=== PATIENT | female | born 1960 | race Caucasian/White ===

== ENCOUNTER 2020-11-06 08:22 | Emergency (ER) | payer SELFPAY ==
[2020-11-06 08:27] VITALS: BP 176/71; PULSE 88; RESP 16; TEMP 36.6; O2SAT 96; BMI 47.3
--- NOTE | 2020-11-06 08:31 | XR_ITS ---
WS: [id number] Portable AP upright chest, 11/06/2020 Clinical Data: chest pain Comparison: Portable chest, 11/12/2017. Findings: No nodules, masses or effusions are seen. The heart is normal. The pulmonary vascularity is not increased. No pneumothorax is seen. There is minimal opacity at the left costophrenic angle with minimal atelectasis and/or pneumonia. There are monitor leads on the chest wall. XR/XR chest 1V portable [id number] Impression: Patchy opacity at left costophrenic angle which could represent atelectasis or minimal pneumonia.
--- NOTE | 2020-11-06 08:31 | ECG_ITS ---
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1960 Requested By: Jyoti Salomon Order Number: [id number] Reading MD: CANDE SIMONS Measurements Intervals [place] Rate: 78 P: 52 MA: 157 QRS: -33 QRSD: 142 T: 113 QT: 418 QTc: 477 Interpretive Statements SINUS RHYTHM MARKED LEFT AXIS DEVIATION [QRS AXIS < -30] LEFT BUNDLE BRANCH BLOCK [120+ ms QRS DURATION, 80+ ms Q/S IN V1/V2, 85+ ms R IN I/aVL/V5/V6] Compared to ECG 11/12/2017 12:12:03 Left-axis deviation now present Left bundle-branch block now present Myocardial infarct finding no longer present Electronically Signed On 11-06-2020 14:27:08 CDT by CANDE SIMONS [id number]
[2020-11-06 09:24] LABS: Basophils % 0.5 %; Eosinophils % 0.1 %; Hematocrit 44.6 % (37.0-47.0); Hemoglobin 13.5 g/dL (11.5-15.3); Lymphocytes # 1.8 10^3/uL (0.8-4.8); Lymphocytes % 24.3 %; Mean Corpuscular HGB Conc 30.3 g/dL (30.0-36.0); Mean Corpuscular Hemoglobin 26.6 pg (28.0-34.0); Mean Corpuscular Volume 87.8 fL (81-99); Mean Platelet Volume 10.2 fL (7.4-10.4); Monocytes # 0.7 10^3/uL (0.2-0.9); Neutrophils # 4.72 10^3/uL (1.8-7.7); Neutrophils % 64.4 %; Nucleated Red Blood Cells % 0 %; Platelet Count 201 10^3/cmm (130-400); Red Blood Count 5.08 10^6/uL (4.1-5.3); Red Cell Distribution Width 14.7 % (12.1-15.1); White Blood Count 7.3 10^3/uL (4.0-10.0)
--- NOTE | 2020-11-06 09:24 | W.ED.CHESTPA ---
HPI - Chest Pain General: Chief Complaint: Chest Pain Stated Complaint: CP/SENT BY [facility] Time Seen by Provider: 11/06/20 08:38 History of Present Illness: HPI narrative: 60-year-old female presents to the emergency room with complaints of intermittent chest pain. She has had over a dozen episodes since yesterday she will get short brief spasm-like chest pain that lasts anywhere from a few seconds to never more than a minute. Feels like she has a hard time taking a deep breath when she gets these. They are not associated with any significant dyspnea diaphoresis or nausea. She has no known history of coronary disease no swelling in the legs. In between these episodes she is essentially asymptomatic. She is not previously had any kind of stress testing or angiograms in the past. She is not diabetic is a former smoker but quit many years ago. Is not previously had events like this in the past. MD complaint: chest pain Onset (ago): day(s) Timing of current episode: episodic and now resolved Prior episodes: No Onset: during rest Pain location: substernal and left chest Pain radiation: none Severity: moderate Quality: sharp Relieving factors: nothing Exacerbating factors: nothing Associated symptoms: Deny abdominal pain, diaphoresis, dyspnea, fever(s), leg edema, nausea, palpitations, sense of impending doom, syncope or vomiting Treatment prior to arrival: none Review of Systems Const: Denies: fever(s) or diaphoresis ENMT: Denies: throat pain, ear or mastoid pain, nasal discharge or nasal congestion Card: Denies: palpitations or syncope Resp: Denies: dyspnea GI: Denies: abdominal pain, nausea or vomiting : Denies: flank pain, difficulty voiding, dysuria, urinary frequency or urinary urgency Skin/Breast: Denies: rash or pruritus Physical Exam Const: COMMON NORMALS: no acute distress GENERAL APPEARANCE: cooperative and comfortable ORIENTATION/CONSCIOUSNESS: Yes awake, Yes oriented to person, Yes oriented to place and Yes oriented to time HENMT: COMMON NORMALS: normocephalic, atraumatic and hearing grossly normal bilaterally HEAD & SCALP: normocephalic and atraumatic Neck/C-Spine: COMMON NORMALS: no JVD Resp: COMMON NORMALS: normal respiratory effort, No retractions, No use of accessory muscles and clear to auscultation bilaterally AUSCULTATION: clear to auscultation bilaterally Cardio: COMMON NORMALS: no JVD, regular rate, regular rhythm and No murmurs present (Cardio) RATE: regular rate RHYTHM: regular rhythm GI: COMMON NORMALS: Soft to palpation and No hepatosplenomegaly present AUSCULTATION: Yes normoactive bowel sounds PALPATION: Yes Soft to palpation, No Tenderness to palpation present (GI), No Guarding due to palpation present (GI) and Yes No hepatosplenomegaly present Extremity: COMMON NORMALS: normal to inspection, capillary refill normal, no clubbing, cyanosis or edema, no calf tenderness and no pedal edema Neuro: SENSORIUM/ORIENTATION: Yes oriented to person, Yes oriented to place and Yes oriented to time Skin: COMMON NORMALS: no rashes or lesions noted GENERAL SKIN EXAM: no rashes or lesions noted Course Vital Signs: Vital signs: Vital Signs Temperature 97.9 F 11/06/20 08:27 Pulse Rate 73 11/06/20 13:58 Respiratory Rate 18 11/06/20 13:58 Blood Pressure 171/69 11/06/20 13:58 Pulse Oximetry 98 11/06/20 13:58 MDM - Chest Pain MDM Narrative: Medical decision making narrative: EKG unremarkable troponin negative. Patient is asymptomatic at this time she has had this for several days blood pressure is significantly elevated and first came in her heart rate was little bit high as well will get ago and started on low-dose Toprol-XL 12 nephrograms daily as well as aspirin daily set her up for a Lexiscan sestamibi stress test return if has further problems. Lab Data: Labs: Lab Results 11/06/20 11/06/20 11/06/20 Range/Units 09:15 09:15 09:15 WBC 7.3 (4.0-10.0) 10^3/ uL RBC 5.08 (4.1-5.3) 10^6/u L Hgb 13.5 (11.5-15.3) g/dL Hct 44.6 (37.0-47.0) % MCV 87.8 (81-99) fL MCH 26.6 L (28.0-34.0) pg MCHC 30.3 (30.0-36.0) g/dL RDW 14.7 (12.1-15.1) % Plt Count 201 (130-400) 10^3/c mm MPV 10.2 (7.4-10.4) fL Neut % (Auto) 64.4 % Lymph % (Auto) 24.3 % [place] % (Auto) 10.0 % Eos % (Auto) 0.1 % Baso % (Auto) 0.5 % Neut # (Auto) 4.72 (1.8-7.7) 10^3/u L Lymph # (Auto) 1.8 (0.8-4.8) 10^3/u L [place] # (Auto) 0.7 (0.2-0.9) 10^3/u L Eos # (Auto) 0.0 (0.0-0.8) 10^3/u L Baso # (Auto) 0.0 (0.0-0.1) 10^3/u L Nucleated RBC % (a uto) 0 % Nucleated RBCs # 0.0 /100WBC Sodium 141 (136-145) mmol/L Potassium 4.1 (3.5-5.1) mmol/L Chloride 103 (98-107) mmol/L Carbon Dioxide 28 (22-29) mmol/L Anion Gap 14.1 (5-19) BUN 9 (8-23) mg/dL Creatinine 0.7 (0.5-0.9) mg/dL GFR Calculation 85.1 L (90-130) mL/min Glucose 115 (65-115) mg/dL Calculated Osmolal ity 292 (285-295) mOsm/k g Calcium 9.3 (8.5-10.5) mg/dL Total Bilirubin 0.5 (0.15-1.2) mg/dL AST 19 (0-32) U/L ALT 17 (0-33) U/L Alkaline Phosphata se 93 (35-105) IU/L Troponin T Baselin e 6 (0-10) ng/L Troponin T 120 Min [place] Troponin T Total Protein 7.5 (6.6-8.7) g/dL Albumin 4.1 (3.5-5.2) g/dL Globulin 3.4 (1.3-4.6) g/dL 11/06/20 11/06/20 Range/Units 11:36 12:28 WBC (4.0-10.0) 10^3/ uL RBC (4.1-5.3) 10^6/u L Hgb (11.5-15.3) g/dL Hct (37.0-47.0) % MCV (81-99) fL MCH (28.0-34.0) pg MCHC (30.0-36.0) g/dL RDW (12.1-15.1) % Plt Count (130-400) 10^3/c mm MPV (7.4-10.4) fL Neut % (Auto) % Lymph % (Auto) % [place] % (Auto) % Eos % (Auto) % Baso % (Auto) % Neut # (Auto) (1.8-7.7) 10^3/u L Lymph # (Auto) (0.8-4.8) 10^3/u L [place] # (Auto) (0.2-0.9) 10^3/u L Eos # (Auto) (0.0-0.8) 10^3/u L Baso # (Auto) (0.0-0.1) 10^3/u L Nucleated RBC % (a uto) % Nucleated RBCs # /100WBC Sodium (136-145) mmol/L Potassium (3.5-5.1) mmol/L Chloride (98-107) mmol/L Carbon Dioxide (22-29) mmol/L Anion Gap (5-19) BUN (8-23) mg/dL Creatinine (0.5-0.9) mg/dL GFR Calculation (90-130) mL/min Glucose (65-115) mg/dL Calculated Osmolal ity (285-295) mOsm/k g Calcium (8.5-10.5) mg/dL Total Bilirubin (0.15-1.2) mg/dL AST (0-32) U/L ALT (0-33) U/L Alkaline Phosphata se (35-105) IU/L Troponin T Baselin e (0-10) ng/L Troponin T 120 Min [place] Cancelled 6.19 Delta Troponin T Cancelled 0.19 Total Protein (6.6-8.7) g/dL Albumin (3.5-5.2) g/dL Globulin (1.3-4.6) g/dL Discharge Plan Discharge Patient Disposition: Home Clinical Impression: Atypical chest pain, HTN (hypertension) Condition: Stable Prescriptions: New aspirin 81 mg tablet,delayed release (DR/EC) 81 mg PO DAILY Qty: 30 RF: 0 Toprol XL 25 mg tablet extended release 24 hr 12.5 mg PO DAILY Qty: 15 RF: 0 Discharge Orders: Discharge ED (Routine); Ordered 11/06/20 Ordered By: Anastacio Taylor Referrals: Ghanshyam Ziegler NP [Primary Care Provider] - Discharge Diet: Usual diet Discharge Activity: Increase activity as tolerated Patient Instructions: Opioid Safety Activity Restrictions/Additional Instructions: Case management will call to set up a Lexiscan sestamibi stress test for you. In the meantime start aspirin and metoprolol. Coding Level of Care Code ED Fuel Cell Assembler for Gunnar Fwbarbra Exam Comprehensive
[2020-11-06 09:47] LABS: Alanine Aminotransferase 17 U/L (0-33); Albumin Level 4.1 g/dL (3.5-5.2); Alkaline Phosphatase 93 IU/L (35-105); Anion Gap 14.1 (5-19); Aspartate Amino Transferase 19 U/L (0-32); Blood Urea Nitrogen 9 mg/dL (8-23); Calcium 9.3 mg/dL (8.5-10.5); Carbon Dioxide 28 mmol/L (22-29); Chloride 103 mmol/L (98-107); Globulin 3.4 g/dL (1.3-4.6); Glomerular Filtration Rate 85.1 mL/min (90-130); Glucose 115 mg/dL (65-115); Osmolality Calculated 292 mOsm/kg (285-295); Potassium 4.1 mmol/L (3.5-5.1); Sodium 141 mmol/L (136-145); Total Bilirubin 0.5 mg/dL (0.15-1.2); Total Protein 7.5 g/dL (6.6-8.7); Troponin(5th) Baseline 6 ng/L (0-10)
--- NOTE | 2020-11-06 10:31 | ECG_ITS ---
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
[2020-11-06 13:04] LABS: Troponin 5 2HR 6.19 ng/L (0-10); Troponin 5 2HR Delta 0.19 ABS# (0-10)
[2020-11-06 13:58] VITALS: BP 171/69; PULSE 73; RESP 18; O2SAT 98
--- NOTE | 2020-11-09 12:27 | DCPLANNER ---
body care manager had message to schedule an outpatient stress test for patient. body care manager faxed signed order to centralized scheduling. body care manager will call for appointment information.
--- NOTE | 2020-11-10 13:32 | DCPLANNER ---
Patient has an outpatient stress test scheduled for Wednesday, December 02, 2020 at 11:30. Centralized scheduling will call patient with appointment information.
--- NOTE | 2020-12-17 12:11 | DCPLANNER ---
Patient had a outpatient stress test scheduled for 12.02.20 - appointment was cancelled.
== END 2020-11-06 14:00 | disposition home or self-care (01) ==
PROVIDERS: Physician Assistant; Emergency Provider Family Medicine; PCP Nurse Practitioner Family
DX: R07.89 Other chest pain (principal); I10 Essential (primary) hypertension
CPT/HCPCS: 36415; 71045; 80053; 84484; 85025; 93005; 99283

== ENCOUNTER 2022-05-11 10:04 | Outpatient (CLI) | payer MEDICAID, SELFPAY ==
--- NOTE | 2022-05-11 10:19 | MM_ITS ---
WS: [id number] BILATERAL SCREENING DIGITAL TOMOSYNTHESIS MAMMOGRAM WITH CAD HISTORY: SCREENING COMPARISON: 01/10/2018 Bilateral CC and MLO views with tomosynthesis and synthetic mammography submitted. Computer aided det ection analyzed. Breast composition: There are scattered areas of fibroglandular density. No suspicious masses, microc alcifications or architectural distortion. MM/[place] [id number] IMPRESSION: BI-RADS: 1-Negative FOLLOW UP: 1 Year Follow-up
== END 2022-05-11 10:05 | disposition home or self-care (01) ==
LOC: RAD 10:10
PROVIDERS: PCP Nurse Practitioner Family; Visit Provider Nurse Practitioner Family
DX: Z12.31 Encounter for screening mammogram for malignant neoplasm of breast (principal)
CPT/HCPCS: 77063; 77067

== ENCOUNTER 2023-06-27 10:15 | Outpatient (CLI) | payer MEDICAID, SELFPAY ==
--- NOTE | 2023-06-27 10:20 | MM_ITS ---
WS: [id number] BILATERAL 3D TOMOSYNTHESIS DIGITAL SCREENING MAMMOGRAPHY WITH CAD CLINICAL INFORMATION: SCREENING HISTORY: Screening mammogram. No current complaints. COMPARISON: 2022 TECHNIQUE: Bilateral CC and MLO views. FINDINGS: Scattered fibroglandular densities bilaterally. No suspicious focal mass, asymmetry, calcifications, or architectural distortion. No evidence of malignancy. A few incidental punctate calcifications. IMPRESSION: MM/[place] [id number] BI-RADS: 2-Benign FOLLOW UP: 1 Year Follow-up Recommend return to annual screening mammography.
== END 2023-06-27 10:16 | disposition home or self-care (01) ==
LOC: RAD 10:16
PROVIDERS: PCP Nurse Practitioner Family; Visit Provider Family Medicine
DX: Z12.31 Encounter for screening mammogram for malignant neoplasm of breast (principal); R92.323 Mammographic fibroglandular density, bilateral breasts
CPT/HCPCS: 77063; 77067

== ENCOUNTER 2024-04-06 13:56 | Emergency (ER) | payer MEDICARE, SELFPAY ==
[2024-04-06 14:34] VITALS: BP 167/104; PULSE 88; RESP 18; TEMP 36.5; O2SAT 95
[2024-04-06 14:44] LABS: Basophils % 0.3 %; Eosinophils % 0.2 %; Hematocrit 49.6 % (36-47); Lymphocytes # 1.8 10^3/uL (0.8-4.8); Lymphocytes % 20.3 %; Mean Corpuscular HGB Conc 29.6 g/dL (30-55); Mean Corpuscular Hemoglobin 26.1 pg (27-33); Mean Corpuscular Volume 87.9 fl (85-98); Mean Platelet Volume 10.5 fL (7.4-10.4); Monocytes % 11.1 %; Neutrophils # 5.82 10^3/uL (1.8-7.7); Neutrophils % 67.8 %; Nucleated Red Blood Cells % 0 %; Platelet Count 194 10^3/cmm (157-399); Red Blood Count 5.64 10^6/uL (3.85-5.65); Red Cell Distribution Width 14.9 % (12.1-15.1); White Blood Count 8.61 10^3/uL (3.29-11.43)
[2024-04-06 15:06] LABS: Alanine Aminotransferase 29 U/L (0-33); Alkaline Phosphatase 77 U/L (35-105); Anion Gap 14.1 (5-19); Aspartate Amino Transferase 32 U/L (0-32); Blood Urea Nitrogen 15 mg/dL (8-23); Calcium 9.5 mg/dL (8.5-10.5); Carbon Dioxide 22 mmol/L (22-29); Chloride 102 mmol/L (98-107); Creatinine Clr Calc Pharmacy 84.4758; Globulin 4.2 g/dL (1.3-4.6); Glucose 108 mg/dL (65-115); Lipase 54 U/L (13-60); Osmolality Calculated 279 mOsm/kg (285-295); Potassium 4.1 mmol/L (3.5-5.1); Sodium 134 mmol/L (136-145); Total Bilirubin 0.4 mg/dL (0.15-1.2); Total Protein 8.2 g/dL (6.6-8.7)
[2024-04-06 16:16] LABS: Bilirubin Urine Negative (Negative); Blood Urine 1+ (Negative); Glucose Urine UA Negative (Normal); Ketones Urine Negative (Negative); Leukocyte Esterase Urine Negative (Negative); Nitrate Urine Negative (Negative); Protein Urine Trace (Negative); Specific Gravity, Urine 1.028 (1.005-1.030); Urine Appearance Cloudy (CLEAR); Urine Color Yellow (Yellow)
[2024-04-06 16:27] LABS: Add Urine Microscopic? YES; Amorphous Sediment Urine TRACE /hpf; Bacteria Urine 2+ /hpf; Coarse Granular Casts Urine 0-4 /lpf; Mucus Urine 1+ /hpf; RBC Urine 0-4 /hpf (0-2); UA Manual Slide Review YES
--- NOTE | 2024-04-06 17:42 | ED_ITS ---
HPI - Nausea/Vomiting/Diarrhea 2 General: Chief complaint: Nausea/Vomiting/Diarrhea Stated complaint: n/v/d Time Seen by Provider: 04/06/24 15:43 Source: patient Mode of arrival: ambulatory Limitations: no limitations History of Present Illness: 64-year-old female states she believes s he has food poisoning states she had eaten dinner 2 nights ago and since then she been having vomiting along with diarrhea. States she has had multiple episodes denies any worsening proving factors states she has had some upper abdominal cramping pain as well. Associated nausea: Yes Associated symtoms: Reports nausea; Denies chest pain, dysuria or headache(s) Related Data Previous Rx's Medication Instructions Recorded aspirin 81 mg tablet,delayed 81 mg PO DAILY #30 tabs 11/06/20 release metoprolol succinate 25 mg 12.5 mg (1/2 x 25 mg) PO DAILY #15 11/06/20 tablet,extended release 24 hr tabs (Toprol XL) ondansetron 4 mg disintegrating 4 mg PO Q6H PRN nausea and 04/06/24 tablet vomiting #14 tabs Allergies Allergy/AdvReac Type Severity Reaction Status Date / Time amoxicillin [From Augmentin] Allergy Unknown Unknown Verified 11/06/20 09:19 clavulanic acid Allergy Unknown Unknown Verified 11/06/20 09:19 [From Augmentin] Iodine and Iodide Containing Allergy Unknown Unknown Verified 11/06/20 09:20 Produc Review of Systems 2 Const: Denies: fever(s), chills, body aches or change in appetite ENMT: Denies: throat pain or dental pain Card: Denies: chest pain Resp: Denies: dyspnea GI: Reports: abdominal pain, nausea, vomiting and diarrhea : Denies: dysuria Musc: Denies: neck pain or back pain Skin/Breast: Denies: rash Neuro: Denies: headache(s) Physical Exam 2 Const: COMMON NORMALS: no acute distress, patient oriented x3 and healthy appearing HENMT: COMMON NORMALS: normocephalic and atraumatic HEAD & SCALP: n ormocephalic and atraumatic Eye: COMMON NORMALS: conjunctivae normal CONJUNCTIVA: Yes conjunctivae normal Neck/C-Spine: COMMON NORMALS: full ROM and supple Chest: COMMONS NORMALS: normal inspection of the chest Resp: COMMON NORMALS: normal respiratory effort Cardio: COMMON NORMALS: regular rate RATE: regular rate GI: COMMON NORMALS: Normal to inspection, nondistended, normoactive bowel sounds present, Soft to palpation, non-tender and no masses PALPATION: Yes Soft to palpation Extremity: COMMON NORMALS: normal to inspection and full ROM Neuro: COMMON NORMALS: patient oriented x3, moves all extremities and no focal motor deficits Psych: COMMON NORMALS: mental status grossly normal, Normal thought process present and cooperative THOUGHT PROCESS: Normal thought process present Skin: COMMON NORMALS: no rashes or lesions noted and no wounds GENERAL SKIN EXAM: no rashes or lesions noted Course 2 Vital Signs: Vital signs: Vital Signs Temperature 97.7 F 04/06/24 14:34 Pulse Rate 88 04/06/24 14:34 Respiratory Rate 18 04/06/24 14:34 Blood Pressure 167/104 04/06/24 14:34 Pulse Oximetry 95 04/06/24 14:34 Oxygen Delivery Me thod Room Air 04/06/24 14:34 MDM - Nausea/Vomiting/Diarrhea Medical Decision Making Patient presents with vomiting diarrhea likely gastroenteritis. Exam here is benign blood work is normal I recommended a CT as she is having pain she now feels improved she is refusing CTs she states she just wants to go home we will prescribe her Zofran at this time she is return if worsening she understands agrees to plan. Medical Records I reviewed the patient's medical records. Lab Data I reviewed the patient's lab results. 04/06/24 14:36 04/06/24 14:36 Laboratory Results WBC 8.61 10^3/uL (3.29-11.43) 04/06/24 14:36 RBC 5.64 10^6/uL (3.85-5.65) 04/06/24 14:36 Hgb 14.70 g/dL (11.27-16.99) 04/06/24 14:36 Hct 49.6 % (36-47) H 04/06/24 14:36 MCV 87.9 fl (85-98) 04/06/24 14:36 MCH 26.1 pg (27-33) L 04/06/24 14:36 MCHC 29.6 g/dL (30-55) L 04/06/24 14:36 RDW 14.9 % (12.1-15.1) 04/06/24 14:36 Plt Count 194 10^3/cmm (157-399) 04/06/24 14:36 MPV 10.5 fL (7.4-10.4) H 04/06/24 14:36 Neut % (Auto) 67.8 % 04/06/24 14:36 Lymph % (Auto) 20.3 % 04/06/24 14:36 [place] % (Auto) 11.1 % 04/06/24 14:36 Eos % (Auto) 0.2 % 04/06/24 14:36 Baso % (Auto) 0.3 % 04/06/24 14:36 Neut # (Auto) 5.82 10^3/uL (1.8-7.7) 04/06/24 14:36 Lymph # (Auto) 1.8 10^3/uL (0.8-4.8) 04/06/24 14:36 [place] # (Auto) 1.0 10^3/uL (0.2-0.9) H 04/06/24 14:36 Eos # (Auto) 0.0 10^3/uL (0.0-0.8) 04/06/24 14:36 Baso # (Auto) 0.0 10^3/uL (0.0-0.1) 04/06/24 14:36 Nucleated RBC % (auto) 0 % 04/06/24 14:36 Nucleated RBCs # 0.0 /100WBC 04/06/24 14:36 Sodium 134 mmol/L (136-145) L 04/06/24 14:36 Potassium 4.1 mmol/L (3.5-5.1) 04/06/24 14:36 Chloride 102 mmol/L (98-107) 04/06/24 14:36 Carbon Dioxide 22 mmol/L (22-29) 04/06/24 14:36 Anion Gap 14.1 (5-19) 04/06/24 14:36 BUN 15 mg/dL (8-23) 04/06/24 14:36 Creatinine 0.7 mg/dL (0.5-0.9) 04/06/24 14:36 GFR Calculation 84.0 mL/min (90-130) L 04/06/24 14:36 Glucose 108 mg/dL (65-115) 04/06/24 14:36 Calculated Osmolality 279 mOsm/kg (285-295) L 04/06/24 14:36 Calcium 9.5 mg/dL (8.5-10.5) 04/06/24 14:36 Total Bilirubin 0.4 mg/dL (0.15-1.2) 04/06/24 14:36 AST 32 U/L (0-32) 04/06/24 14:36 ALT 29 U/L (0-33) 04/06/24 14:36 Alkaline Phosphatase 77 U/L (35-105) 04/06/24 14:36 Total Protein 8.2 g/dL (6.6-8.7) 04/06/24 14:36 Albumin 4.0 g/dL (3.5-5.2) 04/06/24 14:36 Globulin 4.2 g/dL (1.3-4.6) 04/06/24 14:36 Lipase 54 U/L (13-60) 04/06/24 14:36 Urine Color Yellow (Yellow) 04/06/24 16:00 Urine Appearance Cloudy (CLEAR) A 04/06/24 16:00 Urine pH 5.0 (5-7) 04/06/24 16:00 Ur Specific [place] 1.028 (1.005-1.030) 04/06/24 16:00 Urine Protein Trace (Negative) A 04/06/24 16:00 Urine Glucose (UA) Negative (Normal) 04/06/24 16:00 Urine Ketones Negative (Negative) 04/06/24 16:00 Urine Blood 1+ (Negative) A 04/06/24 16:00 Urine Nitrate Negative (Negative) 04/06/24 16:00 Urine Bilirubin Negative (Negative) 04/06/24 16:00 Urine Urobilinogen 1.0 mg/dL (Negative) 04/06/24 16:00 Ur Leukocyte Esterase Negative (Negative) 04/06/24 16:00 Urine RBC 0-4 /hpf (0-2) H 04/06/24 16:00 Urine WBC 5-10 /hpf (0-5) H 04/06/24 16:00 Ur Squamous Epith Cells 10-15 /hpf (0-5) H 04/06/24 16:00 Amorphous Sediment Trace /hpf 04/06/24 16:00 Urine Bacteria 2+ /hpf (NONE) H 04/06/24 16:00 Hyaline Casts 5-10 /lpf H 04/06/24 16:00 Coarse Granular Casts 0-4 /lpf H 04/06/24 16:00 Urine Mucus 1+ /hpf 04/06/24 16:00 No radiology studies performed this visit Discharge Plan Discharge Patient Disposition: Home Clinical Impression: Vomiting, Diarrhea Condition: Stable Prescriptions: New ondansetron 4 mg tablet,disintegrating 4 mg PO Q6H PRN (Reason: nausea and vomiting) Qty: 14 0RF No Action aspirin 81 mg tablet,delayed release (DR/EC) 81 mg PO DAILY Qty: 30 0RF Toprol XL 25 mg tablet extended release 24 hr 12.5 mg PO DAILY Qty: 15 0RF Discharge Orders: Discharge ED (Routine); Ordered 04/06/24 Ordered By: Viviana Johnston Referrals: Gahnshyam Ziegler NP [Primary Care Provider] - 4-7 days Discharge Diet: Advance as tolerated Discharge Activity: Resume usual activity Patient Instructions: Acute Nausea and Vomiting (ED), Acute Diarrhea (ED) Coding Level of Care Code ED Computer Network And Systems Engineer for Gunnar Dickens
[2024-04-06] MEDS: diphenoxylate/atropine Tablet 1 TAB PO (18:09)
== END 2024-04-06 18:13 | disposition home or self-care (01) ==
PROVIDERS: Emergency Provider Emergency Medicine; PCP Nurse Practitioner Family
DX: R11.10 Vomiting, unspecified (principal); R19.7 Diarrhea, unspecified
CPT/HCPCS: 80053; 81001; 83690; 85025; 99283

== ENCOUNTER 2024-07-12 13:07 | Outpatient (CLI) | payer MEDICARE, SELFPAY ==
--- NOTE | 2024-07-12 13:20 | XR_ITS ---
WS: [id number] DEXA (DUAL ENERGY X-RAY ABSORPTIOMETRY) Bone mineral density was performed using a [employer] machine. HISTORY: postmenopausal COMPARISON: None available. Lumbar spine BMD (L1-L4): 1.042 g/cm2 T score: -1.1 Z score: -0.7 Total hip BMD: Left: 0.958 g/cm2. T score: -0.4 Z score: 0.0 Right: 0.983 g/cm2. T score: -0.2 Z score: 0.2 10 year probability of a major osteoporotic fracture is 8.1%. XR/XR DEXA axial skeleton* 07120 IMPRESSION: OSTEOPENIA based upon the WHO classification for females.
== END 2024-07-12 13:08 | disposition home or self-care (01) ==
PROVIDERS: Visit Provider Family Medicine
DX: Z78.0 Asymptomatic menopausal state (principal); M85.80 Other specified disorders of bone density and structure, unspecified site
CPT/HCPCS: 77080

== ENCOUNTER 2024-07-17 13:11 | Outpatient (CLI) | payer MEDICARE, SELFPAY ==
--- NOTE | 2024-07-17 13:14 | MM_ITS ---
WS: [id number] BILATERAL 3D TOMOSYNTHESIS DIGITAL SCREENING MAMMOGRAPHY WITH CAD CLINICAL INFORMATION: SCREENING HISTORY: Screening mammogram. No current complaints. COMPARISON: 2023 TECHNIQUE: Bilateral CC and MLO views. FINDINGS: Scattered fibroglandular densities bilaterally. No suspicious focal mass, asymmetry, calcifications, or architectural distortion. No evidence of malignancy. Incidental punctate calcification RIGHT breast. MM/MM scr tomosynthesis [id number] IMPRESSION: DENSITY: There are scattered areas of fibroglandular density. BI-RADS: 2 - Benign. FOLLOW UP: 1 Year Follow-up Recommend return to annual screening mammography.
== END 2024-07-17 13:12 | disposition home or self-care (01) ==
LOC: RAD 13:12
PROVIDERS: PCP Family Medicine; Visit Provider Family Medicine
DX: Z12.31 Encounter for screening mammogram for malignant neoplasm of breast (principal); R92.323 Mammographic fibroglandular density, bilateral breasts; R92.1 Mammographic calcification found on diagnostic imaging of breast
CPT/HCPCS: 77063; 77067